=== PATIENT | male | born 1940 | race Caucasian/White ===

== ENCOUNTER 2018-11-03 07:31 | Day surgery (SDC) | payer OTHER ==
[2018-10-29 14:40] VITALS: BMI 22.3
[2018-11-03] MEDS ORDERED: BUPIVACAINE HCL/PF 0.5% (5MG/ML) 10 ML VIAL ONE (09:39)
[2018-11-03] MEDS ORDERED: POVIDONE-IODINE 5% OPHTHALMIC PREP 30 ML SOLUTION ONE (09:39)
[2018-11-03] MEDS ORDERED: LIDOCAINE 1%/EPI 1:100000 (20 ML MULTI DOSE VIAL) ONE (09:39)
[2018-11-03] MEDS ORDERED: TETRACAINE 0.5% OPHTH SOLN 2 ML BOTTLE ONE (09:39)
[2018-11-03] MEDS ORDERED: MIDAZOLAM HCL 2 MG/2 ML SINGLE DOSE VIAL ONE (09:53)
[2018-11-03] MEDS ORDERED: PROPOFOL 20 ML ONE (09:53)
[2018-11-03] MEDS ORDERED: TETRACAINE 0.5% OPHTH SOLN 2 ML BOTTLE OD ONE (10:06)
[2018-11-03] MEDS ORDERED: ERYTHROMYCIN 0.5% OPHTHALMIC OINTMENT 3.5 GM TUBE OD ONE ×2 (10:06→11:12)
[2018-11-03] MEDS ORDERED: ONDANSETRON 4 MG/2 ML VIAL IVPUSH PRN (11:26)
[2018-11-03] MEDS ORDERED: oxyCODONE HCL 5 MG TABLET PO PRN ×2 (11:26)
[2018-11-03] MEDS ORDERED: PROMETHAZINE HCL 25 MG/1 ML VIAL IVPUSH PRN (11:26)
[2018-11-03 11:44] VITALS: PULSE 80; TEMP 97.9
[2018-11-03 12:12] VITALS: BP 144/76
--- NOTE | 2018-11-03 12:23 | OP ---
DATE OF OPERATION: 11/03/2018 PREOPERATIVE DIAGNOSIS: Entropion with keratitis, right lower lid right eye. POSTOPERATIVE DIAGNOSIS: Entropion with keratitis, right lower lid right eye. PROCEDURE: 1. Lateral tarsal strip, right lower lid. 2. Transconjunctival plication of retractors, right lower lid. 3. Excision of orbicularis flap, right lower lid. SURGEON: Sahra Stern MD ANESTHESIA: Local with sedation. COMPLICATIONS: None. ESTIMATED BLOOD LOSS: 2-3 mL. OPERATIVE REPORT: The patient was brought to the operating room and placed on the operating room table. Vital signs were monitored by Anesthesia. Tetracaine was placed in both eyes. Lateral canthal line was marked in the right lateral canthus. Time-out was performed after which a 50/50 mixture of 2% Xylocaine and 1:100,000 epinephrine and 0.5% Marcaine was injected subcutaneously in the right lateral canthus down to periosteum lateral 1/3 in the upper and lower lid and subconjunctivally below the tarsal wall on the entire lower lid for a total of 3-4 mL. Massage was applied for hemostasis. The patient was prepped in the usual sterile fashion exposing both eyes. A 4-0 retractor suture was passed through the central lid margin in the right lower lid and tied. Lateral canthal incision was made with a 15 blade then a [place] needle down to the periosteum. The inferior jennifer of the lateral canthal tendon was from the orbital rim with sharp dissection and released. It was overlapped at the orbital rim, marked with a sterile marking pen at the appropriate position, divided along the anterior and posterior lamella with a No. 11 blade. The anterior lamella was excised. The posterior lamella posteriorly and superiorly and the tarsal strip was then secured with double-arm 5-0 Prolene suture reinforced with two 6-0 Vicryl sutures, and this was passed through the internal surface of the orbital rim and the periosteum at the junction with the superior jennifer of the lateral canthal tendon with appropriate tension on the lower lid. It was not tied at this point. Lid was everted, and just below the tarsus, a conjunctival retractor incision was made across the lid from the punctum to the canthus with a [place] needle. The retractors were then dissected down off the orbicularis to free them from the orbicularis and release the septum. The tarsus was from pretarsal orbicularis, and a partial-thickness pretarsal orbicularis strip of orbicularis was excised, and cautery was placed along there to create a fibrous adhesion preventing preseptal . The retractors were then plicated to the anterior inferior tarsus using four 6-0 Vicryl sutures in buried fashion. The lateral canthal angle was reformed with a 5-0 chromic through the greater line of the upper and lower lid in buried fashion tying the knot in the wound recreating the canthus. The 6-0 plain was now used to close the lateral most portion of the skin incision. The Prolene was now tied attaching the tarsal strip to the orbital rim. The excess tarsal strip was overlapped over the Prolene and tied with a 5-0 chromic. The muscle layer was closed with a 5-0 chromic suture and the skin was continued to have closure with a running 6-0 plain suture with plastic technique. Antibiotic irrigation was used throughout the case. Meticulous hemostasis was maintained. The traction sutures were removed. Erythromycin ointment was placed in the eye, another suture to the lateral canthus, and the patient was taken to the recovery room in stable condition. SAHRA STERN M.D. [id number]
== END 2018-11-03 12:10 | disposition home or self-care (01) ==
LOC: FASU 07:31
PROVIDERS: ATTEND Ophthalmology
PROC: 08SQ0ZZ Reposition Right Lower Eyelid, Open Approach (ICD-10-PCS; principal; 2018-11-03 10:17)
DX: H02.002 Unspecified entropion of right lower eyelid (principal)